=== PATIENT | female | born 1980 ===

== ENCOUNTER 2022-07-27 07:45 | Outpatient (CLI) | payer OTHER ==
[~2022-07-27 07:45] MED LIST: GADOBUTROL 10 MMOL/10 ML VIAL ONE
--- NOTE | 2022-07-27 11:29 | MRI Report ---
PROCEDURE: BRAIN W/WO INDICATIONS: VISUAL DISTURBANCE CONTRAST: GADAVIST 8.2 ML TECHNIQUE: Noncontrast axial T1 spin echo, axial T2 fast spin echo, sagittal and axial FLAIR, coronal T2 fast sp in echo, axial gradient echo, axial diffusion and ADC through the brain. After the administration of contrast, axial and coronal T1 spin echo with fat saturation through the brain. COMPARISON: None. FINDINGS: Image quality: Excellent. CSF spaces: Basal cisterns are patent. No extra-axial fluid collections. Ventricles are normal in size and shape. Brain: No midline shift. No intracranial bleeds or masses. No abnormal intracranial enhancement. There is cerebral volume loss for age. There is periventricular white matter chronic small vessel is chemic change. The brainstem appears normal. Diffusion-weighted images demonstrate no acute ischemi c insults. No chronic ischemic insults. Normal intravascular flow voids are present. Skull and face: Calvarial marrow is normal in signal. Mild brachycephaly is noted. Orbits appear no rmal. There is partial sacralization of prominent upper cervical lymph nodes, with lymph nodes measur ing up to 1 cm in short axis. Sinuses: No significant paranasal sinus disease is seen. There is moderate right mastoid air cell flu id noted. IMPRESSION: Normal intracranial study, without a cause of visual disturbance identified. No masses or abnormal enhancement can be seen. No findings of acute or subacute infarction are seen. There is partial visualization of a prominent, yet symmetric cervical lymph nodes. If clinically appr opriate, consideration could be given to performance of a dedicated soft tissue protocol CT with IV contrast for further evaluation. Moderate right mastoid air cell fluid noted. Reviewed by: Jamie Auguste MD on 07/27/2022 10:28 AM MAR[facility] EUGENIA Approved by: Jamie Auguste MD on 07/27/2022 10:28 AM MARIA EUGENIA Station ID: [id number]
== END 2022-07-27 07:46 | disposition home or self-care (01) ==
LOC: DI 07:45
DX: H53.9 Unspecified visual disturbance (principal); R59.0 Localized enlarged lymph nodes
CPT/HCPCS: 70553; A9585